=== PATIENT | female | born 1990 | race American Indian/Alaskan Native ===

== ENCOUNTER 2016-12-16 18:09 | Emergency (ER) | payer SELFPAY ==
[2016-12-16 18:57] LABS: Basophils % (Auto) 0.7 % (0.0-1.8); Eosinophils % (Auto) 1.9 % (0.0-4.3); Hematocrit 35.3 % (30.3-42.9); Hemoglobin 11.2 gm/dl (10.1-14.3); Mean Corpuscular HGB Conc 32 % (30-34); Platelet Count 241 K/mm3 (140-440); Red Blood Count 5.19 M/mm3 (3.65-5.03); Red Cell Distribution Width 16.2 % (13.2-15.2); White Blood Count 9.2 K/mm3 (4.5-11.0)
[2016-12-16 18:59] LABS: Mean Corpuscular Hemoglobin 22 pg (28-32); Mean Corpuscular Volume 68 fl (79-97)
[2016-12-16 19:04] LABS: Anion Gap 21 mmol/L; BUN/Creatinine Ratio 15.71; Blood Urea Nitrogen 11 mg/dL (7-17); Calcium 9.1 mg/dL (8.4-10.2); Carbon Dioxide 19 mmol/L (22-30); Chloride 100.4 mmol/L (98-107); Glucose 155 mg/dL (65-100); Potassium 3.9 mmol/L (3.6-5.0); Sodium 136 mmol/L (137-145)
--- NOTE | 2016-12-17 06:37 | Emergency Department Report ---
HPI - General Chief Complaint: Dyspnea/Respdistress Time Seen by Provider: 12/17/16 06:10 - HPI HPI: This is a 26-year-old [place] female presents to the emergency department with the complaint of a one-month history of left lower extremity swelling, mostly around the foot. However the patient also has noticed a "knot " to the inside of that left calf. Starting yesterday, the patient also began having some generalized chest pressure and shortness of breath. She denies any fever, nausea, vomiting, back pain, diaphoresis. No recent travel or sick contacts at home. She has not taken anything for her symptoms prior to presentation. Patient says that she has a primary care physician, Dr. Malik, but has not seen them regarding her symptoms. She is an occasional smoker. She denies any family history of early cardiac disease or events. ED Past Medical Hx - Past Medical History Previous Medical History?: No - Surgical History Past Surgical History?: No - Social History Smoking Status: Former Smoker Substance Use Type: Marijuana - Medications Home Medications: Home Medications Medication Instructions Recorded Confirmed Last Taken Type Furosemide [Lasix] 20 mg PO QDAY #3 tablet 12/17/16 Unknown Rx ED Review of Systems ROS: Stated complaint: LEFT FOOT SWOLLEN Other details as noted in HPI Comment: All other systems reviewed and negative Constitutional: denies: chills, fever Eyes: denies: eye pain, eye discharge, vision change ENT: denies: ear pain, throat pain Respiratory: shortness of breath. denies: cough Cardiovascular: chest pain, edema Gastrointestinal: denies: abdominal pain, nausea, diarrhea Genitourinary: denies: urgency, dysuria, discharge Musculoskeletal: denies: back pain, arthralgia Skin: denies: rash, lesions Neurological: denies: headache, weakness, paresthesias Physical Exam - Physical Exam Vital Signs: Vital Signs 12/16/16 12/17/16 12/17/16 18:21 01:24 06:14 Temperature 98.8 F 97.9 F 97.5 F L Pulse Rate 98 H 68 61 Respiratory 20 99 H 16 Rate Blood Pressure 105/70 106/72 Blood Pressure 93/64 [Right] O2 Sat by Pulse 98 100 97 Oximetry Physical Exam: GENERAL: The patient is well-developed well-nourished. HENT: Normocephalic. Atraumatic. Patient has moist mucous membranes. EYES: Extraocular motions are intact. Pupils equal reactive to light bilaterally. NECK: Supple. No meningitic signs are noted. There is no adenopathy noted. CHEST/LUNGS: Clear to auscultation. There is no respiratory distress noted. HEART/CARDIOVASCULAR: Regular. There is no tachycardia. There is no gallop rub or murmur. ABDOMEN: Abdomen is soft, nontender. Patient has normal bowel sounds. There is no abdominal distention. SKIN: There is some mild left lower extremity nonpitting swelling when compared to the right. No erythema, warmth, fluctuance. NEURO: The patient is awake, alert, and oriented. The patient is cooperative. The patient has no focal neurologic deficits. The patient has normal speech. MUSCULOSKELETAL: There is some mild tenderness to palpation to the medial portion of the left calf but the "knot" is not appreciable at this time. There is no limitation range of motion. There is no evidence of acute injury. ED Course Vital Signs 12/16/16 12/17/16 12/17/16 18:21 01:24 06:14 Temperature 98.8 F 97.9 F 97.5 F L Pulse Rate 98 H 68 61 Respiratory 20 99 H 16 Rate Blood Pressure 105/70 106/72 Blood Pressure 93/64 [Right] O2 Sat by Pulse 98 100 97 Oximetry ED Medical Decision Making - Lab Data Result diagrams: 12/16/16 18:33 12/16/16 18:33 - EKG Data -: EKG Interpreted by Me EKG shows normal: sinus rhythm, axis, intervals, QRS complexes, ST-T waves Rate: normal - EKG Data When compared to previous EKG there are: previous EKG unavailable Interpretation: normal EKG - Radiology Data Radiology results: report reviewed, image reviewed interpreted by me: Chest x-ray does not show any acute process. There are no pleural effusions, obvious pneumonia and there is no pneumothorax. Left lower extremity venous Doppler negative for DVT. - Medical Decision Making 26-year-old female presents to the emergency department with complaint of a one- month history of left lower extremity swelling as well as some type of knot or nodule towards the calf. She came into the emergency department she says because of the chest pain and shortness of breath that began yesterday. The patient had a full workup including labs, EKG, imaging and physical examination. Labs are unremarkable including negative troponins 2 and a negative d-dimer. EKG is normal without ST elevation ND, ischemia or dysrhythmia. She has a low BNP level. Chest x-ray does not show any acute process. Left lower extremity venous Doppler negative for DVT. She is low on the heart score criteria and has a YESSENIA score of 0. Vital signs stable throughout her ED course. The patient stated that she was upset as she spent a long time in the emergency department and says that she spent "a lot of money" and does not have a definitive diagnosis of her left lower extremity swelling. I let her know that we were able to rule out a myocardial infarction, coronary artery disease, pulmonary embolism, congestive heart failure, pneumonia, any of which could be dangerous to her. We also were able to rule out a DVT. Beyond this, her left lower extremity swelling has been going on for 1 month. She appears safe for discharge home at this time. She was given a very short course of Lasix to see if out help with the left lower extremity swelling. She was given a referral for cardiology regarding her chest discomfort. She was encouraged to return to the emergency Department with any worsening of her symptoms or any acute distress. - Differential Diagnosis DVT, venous stasis, ND, PE, CHF Critical Care Time: No Critical care attestation.: If time is entered above; I have spent that time in minutes in the direct care of this critically ill patient, excluding procedure time. ED Disposition Clinical Impression: Left leg swelling Chest pain Qualifiers: Chest pain type: unspecified Qualified Code(s): R07.9 - Chest pain, unspecified Dyspnea Qualifiers: Dyspnea type: unspecified Qualified Code(s): R06.00 - Dyspnea, unspecified Disposition: DC- TO HOME OR SELFCARE Is pt being admited?: No Condition: Stable Instructions: Chest Pain (ED), Leg Edema (ED), Dyspnea (ED) Additional Instructions: Please follow up with your primary care physician in the next few days. Return to the emergency Department with any worsening of your symptoms or any acute distress. I have given you a referral for a local [employer], Dr. Abbott, in case she would like to follow up regarding the chest pain you experienced. Prescriptions: Furosemide [Lasix] 20 mg PO QDAY #3 tablet Referrals: ZORAIDA ABBOTT MD [Staff Physician] - 3-5 Days MEGAN MALIK MD [Primary Care Provider] - NADIR Time of Disposition: 08:34
--- NOTE | 2016-12-17 07:38 | XRay Report ---
Chest 2 views: History: Shortness of breath. Findings: Normal cardiomediastinal silhouette. Trachea is midline. No consolidation, pneumothorax or pleural effusion. Impression: No acute cardiopulmonary findings.
[2016-12-17 07:59] VITALS: BP 96/65
--- NOTE | 2016-12-19 10:15 | Vascular Lab Report ---
Left Lower Extremity Venous Duplex Study: Reason for Exam: Swelling of the left lower extremity. Comments on the Right: A limited duplex study was done of the proximal veins of the right lower extremity. All veins visualized are freely compressible without evidence of internal echogenicity. Flow is spontaneous and phasic throughout. No evidence of acute or chronic thrombus is seen in any of the vessels visualized. Comments on the Left: All veins visualized are freely compressible without evidence of internal echogenicity. Flow is spontaneous and phasic throughout. No evidence of acute or chronic thrombus is seen in any of the vessels visualized. Impression: No evidence of acute or chronic deep venous thrombosis in the left lower extremity.
== END 2016-12-17 09:43 | disposition home or self-care (01) ==
LOC: ED 18:09
DX: M79.89 Other specified soft tissue disorders (principal); R07.9 Chest pain, unspecified; R06.02 Shortness of breath; F12.10 Cannabis abuse, uncomplicated
CPT/HCPCS: 36415; 71020; 80048; 83880; 84484; 84703; 85025; 85379; 93005; 93010